=== PATIENT | female | born 1955 | race Caucasian/White ===

== ENCOUNTER 2018-01-29 09:45 | Day surgery (SDC) | payer OTHER ==
[2018-01-28 12:47] VITALS: BMI 27.9
[~2018-01-29 09:45] MED LIST: ACETAMINOPHEN 325 MG TABLET (FP) PO PRN
[2018-01-29] MEDS ORDERED: OFLOXACIN 0.3% OPHTHALMIC SOLUTION 5 ML BOTTLE ONE (09:59)
[2018-01-29] MEDS ORDERED: TROPICAMIDE 1% OPHTH SOLN 15 ML BOTTLE ONE (10:00)
[2018-01-29] MEDS ORDERED: PHENYLEPHRINE 2.5% OPHTH SOLN 15 ML BOTTLE ONE (10:00)
[2018-01-29] MEDS ORDERED: KETOROLAC TROMETHAMINE 0.5% EYE DROP 1 DROP DROPS ONE (10:00)
[2018-01-29] MEDS ORDERED: CYCLOPENTOLATE HCL 1% OPHTH SOLN 2 ML BOTTLE ONE (10:00)
[2018-01-29] MEDS: PHENYLEPHRINE 2.5% OPHTH SOLN 15 ML BOTTLE OP SCH ×3 (10:25→10:40)
[2018-01-29] MEDS: OFLOXACIN 0.3% OPHTHALMIC SOLUTION 5 ML BOTTLE OP SCH ×3 (10:25→10:40)
[2018-01-29] MEDS: CYCLOPENTOLATE HCL 1% OPHTH SOLN 2 ML BOTTLE OP SCH ×3 (10:25→10:40)
[2018-01-29 10:28] VITALS: TEMP 98.3
[2018-01-29] MEDS: KETOROLAC TROMETHAMINE 0.5% EYE DROP 1 DROP DROPS OP SCH ×2 (10:35→10:40)
[2018-01-29] MEDS: TROPICAMIDE 1% OPHTH SOLN 15 ML BOTTLE OP SCH ×2 (10:35→10:40)
[2018-01-29] MEDS ORDERED: LIDOCAINE HCL/PF 2% SDV 5ML VIAL ONE (11:10)
[2018-01-29] MEDS ORDERED: PROPOFOL 20 ML ONE (11:10)
[2018-01-29] MEDS ORDERED: BUPIVACAINE HCL/PF 0.75% 10 ML VIAL NR ONE (11:17)
[2018-01-29] MEDS ORDERED: LIDOCAINE HCL/PF 2% SDV 5ML VIAL INF ONE (11:17)
[2018-01-29] MEDS ORDERED: POVIDONE-IODINE 5% OPHTHALMIC PREP 30 ML SOLUTION OS ONE (11:18)
[2018-01-29] MEDS ORDERED: BSS (NA/CA/MG/K) BALANCED SALT SOLUTION OPHTH SOLN 15 ML BOTTLE OS ONE (11:29)
[2018-01-29] MEDS ORDERED: CHONDROITIN SU A/HYALUR SOD 1 KIT IO ONE (11:29)
[2018-01-29] MEDS ORDERED: LIDOCAINE HCL 1% PRESERVATIVE FREE - 30ML VIAL IO ONE (11:29)
[2018-01-29] MEDS ORDERED: TRYPAN BLUE 0.5 ML DISP.SYRIN IO ONE (11:29)
[2018-01-29] MEDS ORDERED: EPINEPHrine/PF 1 MG/1 ML (1:1,000) AMPULE SQ ONE (11:35)
[2018-01-29 13:09] VITALS: BP 120/63; PULSE 88
--- NOTE | 2018-01-29 14:10 | OP ---
DATE OF OPERATION: 01/29/2018 PREOPERATIVE DIAGNOSIS: Cataract, left eye. POSTOPERATIVE DIAGNOSIS: Cataract, left eye. PROCEDURE: Phacoemulsification of left cataract with capsule staining with Trypan blue and posterior chamber intraocular lens implantation. Lens used SN60WF, 25.0 diopter power, serial no. [id number]. ANESTHESIA: Peribulbar/modified van Lint/MAC. COMPLICATIONS: None. PROCEDURE: The patient was brought to the operating room and correctly identified, along with the operative site, as well as correct intraocular lens melissa. She was then given a peribulbar block under sedation with 5 mL of a 1:1 mixture of 2% lidocaine and 0.75% bupivacaine. A saline mixture of 2 mL was given as a modified Lint block. The eye was then prepped and draped in the usual sterile fashion including 5% Betadine solution in the conjunctival sac and an eyelid drape. An eyelid speculum was then placed into the left eye. The eye was inspected and a dense peripheral cortical cataract was noted. There was some concern about the visualization of the capsulorrhexis, given the density of the cataract. A paracentesis port was created and intracameral lidocaine approximately 0.5 mL was injected intracamerally. An air bubble was then placed in the anterior chamber and Trypan blue was used to stain the capsule. The remaining 0.5 mL of the preservative-free lidocaine was injected to irrigate the Trypan blue from the eye. Viscoelastic was injected to inflate the anterior chamber. A temporal clear corneal wound was created. A continuous circular capsulorrhexis was then successfully performed. The nucleus hydrodissected with BSS and removed with phacoemulsification via a [id number] approach. The remaining cortical material was irrigated and aspirated from the eye. Viscoelastic was injected to inflate the capsular beg. The lens was injected into the capsular bag. Viscoelastic was irrigated and aspirated from the eye. At the end, all wounds were tested and found to be watertight. No suture was placed. The eye well was noted to be well centered and covered by the anterior capsular border. Topical Vancomycin and one drop of Betadine was placed, the eye patched and shielded, and the patient discharged from the operating room in a stable condition. MARIELA POSEY M.D. [id number]
== END 2018-01-29 13:10 | disposition home or self-care (01) ==
LOC: JASU-SURG 09:45
PROVIDERS: ATTEND Ophthalmology
PROC: 08RK3JZ Replacement of Left Lens with Synthetic Substitute, Percutaneous Approach (ICD-10-PCS; principal; 2018-01-29 11:00)
DX: H26.9 Unspecified cataract (principal)

== ENCOUNTER 2018-05-09 07:46 | Day surgery (SDC) | payer OTHER ==
[2018-04-29 18:59] VITALS: BMI 27.7
[2018-05-09] MEDS ORDERED: MIDAZOLAM HCL 2 MG/2 ML SINGLE DOSE VIAL ONE (08:45)
[2018-05-09] MEDS ORDERED: ROPIVACAINE HCL 0.5% 30ML VIAL ONE (08:45)
[2018-05-09] MEDS ORDERED: CLINDAMYCIN PHOSPHATE 600 MG/4 ML VIAL ONE (09:25)
[2018-05-09] MEDS ORDERED: PROPOFOL 20 ML ONE ×2 (09:25)
[2018-05-09] MEDS ORDERED: LIDOCAINE HCL/PF 2% SDV 5ML VIAL ONE (09:25)
[2018-05-09] MEDS ORDERED: SUCCINYLCHOLINE CHLORIDE 200 MG/10 ML VIAL ONE (09:49)
[2018-05-09] MEDS ORDERED: ePHEDrine SULFATE 50 MG/1 ML AMPULE ONE (09:54)
[2018-05-09] MEDS ORDERED: oxyCODONE HCL 5 MG TABLET PO PRN (10:29)
[2018-05-09] MEDS ORDERED: ONDANSETRON 4 MG/2 ML VIAL IVPUSH PRN (10:29)
[2018-05-09] MEDS ORDERED: LACTATED RINGERS SOLUTION 1,000 ML IV SCH (10:30)
[2018-05-09 12:39] VITALS: TEMP 98.4
[2018-05-09 12:43] VITALS: BP 131/79; PULSE 74
--- NOTE | 2018-05-09 17:12 | SPEC ---
DATE OF OPERATION: 05/09/2018 SURGEON: Kaelyn Reilly MD MONOR[facility] CRANE OPERATOR: BARRY Arellano PREOPERATIVE DIAGNOSES: 1. Left shoulder rotator cuff tear. 2. Left shoulder adhesive capsulitis. 3. Left shoulder impingement syndrome. 4. Right shoulder acromioclavicular degenerative joint disease. 5. Left shoulder superior labral tear, anterior and posterior synovitis. 6. Left shoulder biceps long head tear. POSTOPERATIVE DIAGNOSES: 1. Left shoulder rotator cuff tear. 2. Left shoulder adhesive capsulitis. 3. Left shoulder impingement syndrome. 4. Right shoulder acromioclavicular degenerative joint disease. 5. Left shoulder superior labral tear, anterior and posterior synovitis. 6. Left shoulder biceps long head tear. PROCEDURE: 1. Left shoulder arthroscopy with rotator cuff repair, CPT code 88589 2. Left shoulder arthroscopy with lysis , CPT code 2925. 3. Left shoulder arthroscopy with subacromial decompression, CPT code 06182. 4. Left shoulder arthroscopy with resection of clavicle acromioclavicular joint, CPT code 2924. 5. Left shoulder arthroplasty debridement, CPT code 2923. 6. Open release of long head biceps, CPT code 91600. FINDINGS: 1. Type 4 tearing long head biceps including the superior labrum from anterior to posterior. 2. Glenohumeral synovitis. 3. Diffuse grade 1-2 cartilage glenoid, anterior grade 3 changes glenoid humerus. 4. Biceps subluxation with tearing going into the superior labrum. 5. Glenohumeral synovitis and adhesions. 6. Posterior and anterior labral fraying. 7. Full-thickness supraspinatus rotator cuff tear. 8. Type 2 acromion with large anterior spurring. 9. with adhesion to scar tissue. 10. Inferior spurs to clavicle, acromioclavicular joint. REPAIR TYPE: Two mattress sutures were placed into the supraspinatus. The biceps tendon was released due to extensive tearing and debridement down to the superior labrum. The two mattress sutures were secured to the greater tuberosity using an Opus anchor system. DESCRIPTION OF PROCEDURE: Informed consent was obtained. The patient was taken to the operating room, where the upper extremity was prepped and draped in a sterile fashion. The shoulder was manipulated for a full range of motion. A posterior incision portal was made and directed to the glenohumeral joint. Under direct visualization, an anterior incision and portal was made. Extensive synovitis, as well as chondral injuries throughout the glenohumeral joint were debrided and removed. Any identified labral injuries, including the superior labral tear, anterior and posterior, and anterior labrum torn portions, were removed as well. The rotator cuff was visualized and noted to have a full-thickness tear. The edges were debrided. The posterior incision portal was redirected to the subacromial space where a lateral incision portal was made. Excessive and thickened scar tissue noted throughout the subacromial space, including bursal and scar tissue, were removed. The type 2 acromion was converted into a flattened type 1 using a bur for subacromial decompression. The distal inferior spur at the distal clavicle was also debrided with the use of an accessory portal in the acromioclavicular joint. The edges of the rotator cuff were identified. Sutures were placed into the rotator cuff and secured using anchors through the greater tuberosity. Prior to securing, a bleeding bed was made using a small bur, creating a bleeding surface of the rotator cuff insertion. The shoulder was then drained, a single suture was placed in all portals, a sterile dressing was placed and the patient was transferred to the recovery room without complication. The PA listed above was present and assisted at surgery. Their presence was absolutely medically necessary for the completion of the procedure. They helped hold the arthroscopy, pass instruments (and implants when indicated) and the procedure could not have been completed without their assistance. KAELYN REILLY M.D. [id number]
== END 2018-05-09 12:30 | disposition home or self-care (01) ==
LOC: FASU 07:46
PROVIDERS: ATTEND Orthopaedic Surgery
PROC: 0RNK4ZZ Release Left Shoulder Joint, Percutaneous Endoscopic Approach (ICD-10-PCS; 2018-05-09)
PROC: 0PBB4ZZ Excision of Left Clavicle, Percutaneous Endoscopic Approach (ICD-10-PCS; 2018-05-09)
PROC: 0RBK4ZZ Excision of Left Shoulder Joint, Percutaneous Endoscopic Approach (ICD-10-PCS; 2018-05-09)
PROC: 0LB20ZZ Excision of Left Shoulder Tendon, Open Approach (ICD-10-PCS; 2018-05-09)
PROC: 0LQ24ZZ Repair Left Shoulder Tendon, Percutaneous Endoscopic Approach (ICD-10-PCS; principal; 2018-05-09 09:53)
DX: M75.122 Complete rotator cuff tear or rupture of left shoulder, not specified as traumatic (principal); M75.02 Adhesive capsulitis of left shoulder; M75.42 Impingement syndrome of left shoulder; M19.012 Primary osteoarthritis, left shoulder; S43.432A Superior glenoid labrum lesion of left shoulder, initial encounter; X58.XXXA Exposure to other specified factors, initial encounter; Y93.9 Activity, unspecified; Y92.9 Unspecified place or not applicable; M66.812 Spontaneous rupture of other tendons, left shoulder
CPT/HCPCS: 94760

== ENCOUNTER 2019-01-07 10:42 | Day surgery (SDC) | payer OTHER ==
[2019-01-06 10:33] VITALS: BMI 29.0
[~2019-01-07 10:42] MED LIST changes: +BUPIVACAINE HCL/PF 0.75% 10 ML VIAL RB ONE; +CHONDROITIN SU A/HYALUR SOD 1 KIT IO ONE; +EPINEPHrine/PF 1 MG/1 ML (1:1,000) AMPULE SQ ONE; +LIDOCAINE HCL 1% PRESERVATIVE FREE - 30ML VIAL IO ONE; +LIDOCAINE HCL/PF 2% SDV 5ML VIAL PNB ONE; +POVIDONE-IODINE 5% OPHTHALMIC PREP 30 ML SOLUTION OD ONE
[2019-01-07 11:05] VITALS: TEMP 97.9
[2019-01-07] MEDS ORDERED: PHENYLEPHRINE 2.5% OPHTH SOLN 15 ML BOTTLE ONE (11:07)
[2019-01-07] MEDS ORDERED: OFLOXACIN 0.3% OPHTHALMIC SOLUTION 5 ML BOTTLE ONE (11:07)
[2019-01-07] MEDS ORDERED: TROPICAMIDE 1% OPHTH SOLN 15 ML BOTTLE ONE (11:07)
[2019-01-07] MEDS ORDERED: CYCLOPENTOLATE HCL 1% OPHTH SOLN 2 ML BOTTLE ONE (11:07)
[2019-01-07] MEDS ORDERED: KETOROLAC TROMETHAMINE 0.5% EYE DROP 1 DROP DROPS ONE (11:08)
[2019-01-07] MEDS ORDERED: BUPIVACAINE HCL/PF 0.75% 10 ML VIAL RB ONE (11:20)
[2019-01-07] MEDS: TROPICAMIDE 1% OPHTH SOLN 15 ML BOTTLE OP SCH ×3 (11:30→11:46)
[2019-01-07] MEDS: KETOROLAC TROMETHAMINE 0.5% EYE DROP 1 DROP DROPS OP SCH ×3 (11:30→11:46)
[2019-01-07] MEDS: PHENYLEPHRINE 2.5% OPHTH SOLN 15 ML BOTTLE OP SCH ×3 (11:30→11:46)
[2019-01-07] MEDS: OFLOXACIN 0.3% OPHTHALMIC SOLUTION 5 ML BOTTLE OP SCH ×3 (11:30→11:46)
[2019-01-07] MEDS: CYCLOPENTOLATE HCL 1% OPHTH SOLN 2 ML BOTTLE OP SCH ×3 (11:30→11:46)
[2019-01-07] MEDS ORDERED: PROPOFOL 20 ML ONE (12:02)
[2019-01-07] MEDS ORDERED: LIDOCAINE HCL/PF 2% SDV 5ML VIAL PNB ONE ×2 (12:07→12:08)
[2019-01-07] MEDS ORDERED: POVIDONE-IODINE 5% OPHTHALMIC PREP 30 ML SOLUTION OD ONE ×2 (12:08→12:13)
[2019-01-07] MEDS ORDERED: LIDOCAINE HCL 1% PRESERVATIVE FREE - 30ML VIAL IO ONE ×2 (12:08→12:14)
[2019-01-07] MEDS ORDERED: BUPIVACAINE HCL/PF 0.75% 10 ML VIAL PNB ONE (12:08)
[2019-01-07] MEDS ORDERED: EPINEPHrine/PF 1 MG/1 ML (1:1,000) AMPULE SQ ONE (12:16)
[2019-01-07] MEDS ORDERED: CHONDROITIN SU A/HYALUR SOD 1 KIT IO ONE (12:16)
[2019-01-07] MEDS ORDERED: CHONDROITIN SU A/HYALUR SOD 1 KIT ONE (13:12)
[2019-01-07 13:41] VITALS: BP 113/59; PULSE 70
--- NOTE | 2019-01-07 21:29 | SPEC ---
DATE OF OPERATION: 01/07/2019 OPERATION: Phacoemulsification of right cataract with posterior chamber intraocular lens implantation, lens used SN60WF, 24.0 Diopter power, Serial No. [id number]. PREOPERATIVE DIAGNOSIS: Cataract, right eye. POSTOPERATIVE DIAGNOSIS: Cataract, right eye. SURGEON: Cuate Fox M.D. ANESTHESIA: Peribulbar/Modified Van Lint/MAC. PROCEDURE: The patient was brought to the operating room and correctly identified along with the operative site and a correct intraocular lens melissa. The patient was then given a peribulbar block under sedation with 5 mL of a 1:1 mixture of 2% Lidocaine and 0.5% Bupivacaine. Two to 3 mL of the same mixture was given as a modified Van Lint block. The eye was then prepped and draped in the usual sterile fashion including 5% Betadine solution in the conjunctival sac and an eyelid drape. An eyelid speculum was then placed into the eye. A paracentesis port was created. Viscoelastic was injected to inflate the anterior chamber. A temporal clear corneal wound was created. A continuous circular capsulorrhexis was performed. The nucleus was then hydro-dissected and removed phacoemulsification via the [id number] approach. The remaining cortical material was irrigated and aspirated from the eye. Viscoelastic was injected to inflate the capsular bag. The lens was injected into the capsular bag. Viscoelastic was then irrigated and aspirated from the eye. The intraocular lens was noted to be well centered and covered by the anterior capsular border. All wounds were found to be watertight. Topical Vancomycin was given. The eye patch and shield were placed. The patient was discharged from the operating room in stable condition. Melina [id number]
== END 2019-01-07 13:35 | disposition home or self-care (01) ==
LOC: JASU-SURG 10:42
PROVIDERS: ATTEND Ophthalmology
PROC: 08RJ3JZ Replacement of Right Lens with Synthetic Substitute, Percutaneous Approach (ICD-10-PCS; principal; 2019-01-07 12:00)
DX: H26.9 Unspecified cataract (principal)

== ENCOUNTER 2022-01-16 04:22 | Day surgery (SDC) | payer OTHER ==
[2022-01-12 13:19] VITALS: BMI 27.4
[2022-01-16] MEDS ORDERED: LIDOCAINE HCL/PF 1% SDV 5ML VIAL ONE (07:45)
[2022-01-16] MEDS ORDERED: BUPIVACAINE HCL/PF 0.75% 10 ML VIAL ONE (07:45)
[2022-01-16] MEDS ORDERED: MIDAZOLAM HCL 2 MG/2 ML SINGLE DOSE VIAL ONE (14:08)
[2022-01-16] MEDS ORDERED: LIDOCAINE HCL 1% PRESERVATIVE FREE - 30ML VIAL IJ ONE (14:13)
[2022-01-16] MEDS ORDERED: IOHEXOL 180 MG/1 ML ML IJ ONE (14:14)
[2022-01-16] MEDS ORDERED: BUPIVACAINE HCL/PF 0.75% 10 ML VIAL NR ONE ×2 (14:14→14:20)
[2022-01-16] MEDS ORDERED: DEXAMETHASONE SOD PHOSPHATE 10 MG/1 ML VIAL IVPUSH ONE ×2 (14:15→14:21)
[2022-01-16 14:57] VITALS: RESP 16
[2022-01-16 16:59] VITALS: BP 145/60; PULSE 74; TEMP 97.5
== END 2022-01-16 16:45 | disposition home or self-care (01) ==
LOC: JASU-SURG 04:22
PROVIDERS: ATTEND Pain Medicine Pain Medicine
PROC: BR16YZZ Fluoroscopy of Lumbar Facet Joint(s) using Other Contrast (ICD-10-PCS; 2022-01-16)
PROC: 3E0T3BZ Introduction of Anesthetic Agent into Peripheral Nerves and Plexi, Percutaneous Approach (ICD-10-PCS; principal; 2022-01-16 14:00)
DX: G90.59 Complex regional pain syndrome I of other specified site (principal)
CPT/HCPCS: 76000-TC-FY; J1100

== ENCOUNTER 2022-03-16 07:13 | Day surgery (SDC) | payer OTHER ==
[2022-03-14 16:03] VITALS: BMI 29.2
[2022-03-16] MEDS ORDERED: ONDANSETRON 4 MG/2 ML VIAL ONE (08:03)
[2022-03-16] MEDS ORDERED: DEXAMETHASONE SOD PHOSPHATE 4 MG/1 ML VIAL ONE (08:03)
[2022-03-16] MEDS ORDERED: KETOROLAC TROMETHAMINE 30 MG/1 ML VIAL ONE ×2 (08:03→08:37)
[2022-03-16] MEDS ORDERED: ceFAZolin SODIUM 1 GM VIAL ONE (08:03)
[2022-03-16] MEDS ORDERED: MIDAZOLAM HCL 2 MG/2 ML SINGLE DOSE VIAL ONE (08:03)
[2022-03-16] MEDS ORDERED: PROPOFOL 20 ML ONE (08:03)
[2022-03-16] MEDS ORDERED: ACETAMINOPHEN INJECTION 100 ML IVPB ONE (08:37)
[2022-03-16] MEDS ORDERED: CLINDAMYCIN 600MG PREMIX IVPB 600 MG/50 ML BAG IVPB ONE (09:03)
[2022-03-16] MEDS ORDERED: BUPIVACAINE HCL/PF 2.5 MG/ML - 30 ML VIAL IJ ONE ×3 (09:07→09:28)
[2022-03-16] MEDS ORDERED: ACETAMINOPHEN 325 MG TABLET (FP) PO PRN (09:39)
[2022-03-16] MEDS ORDERED: LACTATED RINGERS SOLUTION 1,000 ML IV SCH (09:45)
[2022-03-16 11:16] VITALS: TEMP 97.8
[2022-03-16 11:44] VITALS: BP 111/56; PULSE 70; RESP 16
== END 2022-03-16 11:59 | disposition home or self-care (01) ==
LOC: FASU 07:13
PROVIDERS: ATTEND Orthopaedic Surgery
PROC: 0SBD4ZZ Excision of Left Knee Joint, Percutaneous Endoscopic Approach (ICD-10-PCS; 2022-03-16)
PROC: 0SBD4ZZ Excision of Left Knee Joint, Percutaneous Endoscopic Approach (ICD-10-PCS; principal; 2022-03-16 09:15)
DX: S83.242A Other tear of medial meniscus, current injury, left knee, initial encounter (principal); S83.282A Other tear of lateral meniscus, current injury, left knee, initial encounter; S83.8X2A Sprain of other specified parts of left knee, initial encounter; M65.862 Other synovitis and tenosynovitis, left lower leg; X58.XXXA Exposure to other specified factors, initial encounter; Y93.9 Activity, unspecified; Y92.9 Unspecified place or not applicable
CPT/HCPCS: 94760

== ENCOUNTER 2022-07-01 10:20 | Emergency (ER) | payer OTHER ==
[2022-07-01] MEDS ORDERED: IBUPROFEN 400 MG TABLET (FP) PO ONE ×2 (10:29→10:51)
[2022-07-01 10:33] VITALS: BP 121/67; PULSE 65; RESP 20; TEMP 98.3; BMI 29.2
== END 2022-07-01 11:46 | disposition home or self-care (01) ==
LOC: FER 10:20
PROC: 2W3RX1Z Immobilization of Left Lower Leg using Splint (ICD-10-PCS; principal; 2022-07-01)
DX: S82.55XA Nondisplaced fracture of medial malleolus of left tibia, initial encounter for closed fracture (principal); W10.8XXA Fall (on) (from) other stairs and steps, initial encounter
CPT/HCPCS: 73610-TC-LT-FY; 99283-25